=== PATIENT | male | born 1965 | race Caucasian/White ===

== ENCOUNTER 2018-10-24 14:23 | Outpatient (CLI) | payer BC ==
[2018-10-24] MEDS ORDERED: Gadobenate Dimeglumine 529 MG/1 ML (20ML VIAL) ONE (16:33)
--- NOTE | 2018-10-24 17:04 | MRI ---
MRI BRAIN WITH AND WITHOUT CONTRAST: 10/24/2018 HISTORY: ICD-10 R43.1, parosmia in a 53-year-old male. TECHNIQUE: Multiple sequences obtained in axial, sagittal, and coronal planes; pre and post IV injection of gado linium-based contrast agent: MultiHance 19 mL. Additional thin slice T2 coronal and post Gadolinium fat suppressed T1 coronal through cribriform nerissa te. FINDINGS: The ventricles are normal in size and configuration. There is no major intraaxial signal abnormality , restricted diffusion, abnormal intraaxial enhancement, mass, midline shift or any other mass effect , recent intraaxial hemorrhage, or extraaxial fluid collection. There is no evidence of abnormal enh ancement or solid or cystic mass around the cribriform plate. There is a moderate-sized mucus retent ion cyst at the floor of the left maxillary sinus. IMPRESSION: Normal. jnr POS: CET
== END 2018-10-24 14:24 | disposition home or self-care (01) ==
LOC: BICMRI 14:23
PROVIDERS: ATTEND Otolaryngology Plastic Surgery within the Head & Neck
DX: J32.9 Chronic sinusitis, unspecified (principal); R43.1 Parosmia
CPT/HCPCS: 70553; A9577